=== PATIENT | female | born 1965 | race Caucasian/White ===

== ENCOUNTER → 2018-10-11 | Emergency (ER) | payer MEDICAID, OTHER ==
[~2018-10-11] VITALS: Ht 160 cm; Wt 53.9 kg
[~2018-10-11] MED LIST: LORAZEPAM 1 MG TAB PO ONE
[2018-10-11 00:13] VITALS: Ht 160 cm; Wt 53.9 kg
--- NOTE | 2018-10-11 02:44 | ERD ---
ER Documentation Chief Complaint Chief Complaint chest pain x 2 days HPI This is a 53-year-old female who presents to the emergency room complaining of chest pain for 3 days. The patient describes left-sided chest pain that is sharp, reproducible and usually worse with her anxiety. She states that today she became very anxious on the bus and presented to the emergency room. She denies any pleuritic pain, no shortness of breath, no exertional chest pain. No fevers chills cough. ROS All systems reviewed and are negative except as per history of present illness. Medications Home Meds Unable to Obtain Active Prescriptions or Reported Meds Allergies Allergies: Coded Allergies: Penicillins (Verified Allergy, Unknown, swelling, 10/11/18) PMhx/Soc History of Surgery: Yes (Breast implants, ) Anesthesia Reaction: No Hx Neurological Disorder: Yes (Seizures) Hx Respiratory Disorders: No Hx Cardiac Disorders: No Hx Psychiatric Problems: No Hx Miscellaneous Medical Probl: No Hx Alcohol Use: No Hx Substance Use: Yes (Quit 30 years ago) Hx Tobacco Use: Yes (Quit 2 years ago) Smoking Status: Former smoker FmHx Family History: No diabetes Physical Exam Vitals Vital Signs Date Temp Pulse Resp B/P (MAP) Pulse Ox O2 O2 Flow FiO2 Time Delivery Rate 10/11/18 97.8 70 18 124/55 97 Room Air 00:35 (78) 10/11/18 97.8 79 18 124/55 94 00:13 (78) Physical Exam General: Well developed, well nourished, no acute distress Head: Normocephalic, atraumatic. Eyes: Pupils equally reactive, EOM intact ENT: Moist mucous membranes Neck: Supple, no lymphadenopathy Respiratory: Lungs clear bilaterally, no distress Cardiovascular: RRR, no murmurs, rubs, or gallops Abdominal: Soft, non-tender, non-distended, no peritoneal signs : Deferred MSK: No edema, no unilateral swelling, 5/5 strength Neurologic: Alert and oriented, moving all extremities, normal speech, no focal weakness, no cerebellar signs Skin: No rash Psych: Normal mood Result Diagram: 10/11/188 10/11/188 Results 24 hrs Laboratory Tests Test 10/11/18 00:48 White Blood Count 5.4 10^3/ul Red Blood Count 4.02 10^6/ul Hemoglobin 12.5 g/dl Hematocrit 38.1 % Mean Corpuscular Volume 94.8 fl Mean Corpuscular Hemoglobin 31.1 pg Mean Corpuscular Hemoglobin Concent 32.8 g/dl Red Cell Distribution Width 12.3 % Platelet Count 198 10^3/UL Mean Platelet Volume 10.7 fl Immature Granulocytes % 0.200 % Neutrophils % 47.4 % Lymphocytes % 40.9 % Monocytes % 7.6 % Eosinophils % 3.2 % Basophils % 0.7 % Nucleated Red Blood Cells % 0.0 /100WBC Immature Granulocytes # 0.010 10^3/ul Neutrophils # 2.5 10^3/ul Lymphocytes # 2.2 10^3/ul Monocytes # 0.4 10^3/ul Eosinophils # 0.2 10^3/ul Basophils # 0.0 10^3/ul Nucleated Red Blood Cells # 0.0 10^3/ul Sodium Level 143 mmol/L Potassium Level 3.5 mmol/L Chloride Level 108 mmol/L Carbon Dioxide Level 23 mmol/L Anion Gap 12 Blood Urea Nitrogen 19 mg/dl Creatinine 0.66 mg/dl Est Glomerular Filtrat Rate mL/min > 60 mL/min Glucose Level 116 mg/dl Calcium Level 8.9 mg/dl Troponin I < 0.012 ng/ml Current Medications Medications Dose Sig/Evan Start Time Status Last (Trade) Ordered Route PRN Stop Time Admin Dose Reason Admin Lorazepam 1 mg ONCE ONCE 10/11/18 DC 10/11/18 (Ativan) PO 01:00 10/11/18 01:29 01:01 Procedures/MDM EKG, MONITORS, & DIAGNOSTIC IMAGING: EKG: I reviewed and interpreted a 12-lead EKG. Rhythm: Normal sinus rhythm ST Changes: No contiguous ST segment elevations T waves: No contiguous T wave inversions Impression: No evidence of acute cardiac ischemia Repeat EKG: EKG: I reviewed and interpreted a 12-lead EKG. Rhythm: Normal sinus rhythm ST Changes: No contiguous ST segment elevations T waves: No contiguous T wave inversions Impression: No evidence of acute cardiac ischemia Chest x-ray: I reviewed and interpreted a 1 view of the chest Mediastinum: No enlargement Cardiac silhouette: No cardiomegaly Airspace: Clear lung mccormack bilaterally without evidence of pneumothorax Bones: No evidence of fracture PROCEDURES: None LAB INTERPRETATION: Negative troponin MEDICAL DECISION MAKING: The patient's history, physical exam and clinical presentation is very consistent with anxiety rather than cardiac etiology. No exertional symptoms, better alternative diagnosis, clear correlation with anxiety and stress response. Based on the patient's clinical exam and history and risk factors, I have a much lower clinical concern for pulmonary embolism, acute aortic dissection, pneumothorax, pneumonia, cardiac tamponade HEART Score: Less than 3 MACE Rate: Less than 1.7% Shared Decision Making: We had a conversation regarding risk stratification, MACE rate, and the risks, benefits, alternatives of disposition planning options. Disposition planning: Anticipate discharge ER COURSE: * Patient continues to be well-appearing, given anxiolysis. * Laboratory testing and diagnostic imaging is unrevealing. This seems to be very inconsistent with cardiac etiology. Patient can be safely discharged with close primary care follow-up. CONSULTATION: None DISPOSITION PLAN: The patient does not have an identifiable emergent medical condition that warrants inpatient hospitalization at this time. The patient is deemed safe for discharge with outpatient follow-up. We discussed follow up with the patient's primary care doctor within 24 to 48 hours as needed. We also discussed return to the emergency room for worsening symptoms or worsening condition. Outpatient referral: None required Discharge Medications: None required Departure Diagnosis: Primary Impression: Chest pain Chest pain type: unspecified Qualified Codes: R07.9 - Chest pain, unspecified Additional Impression: Anxiety Condition: Stable Patient Instructions: Anxiety Reaction, Chest Pain, Uncertain Cause Referrals: [facility] YOU HAVE RECEIVED A MEDICAL SCREENING EXAM AND THE RESULTS INDICATE THAT YOU DO NOT HAVE A CONDITION THAT REQUIRES URGENT TREATMENT IN THE EMERGENCY DEPARTMENT. FURTHER EVALUATION AND TREATMENT OF YOUR CONDITION CAN WAIT UNTIL YOU ARE SEEN IN YOUR DOCTORS OFFICE WITHIN THE NEXT 1-2 DAYS. IT IS YOUR RESPONSIBILITY TO MAKE AN APPOINTMENT FOR FOL- CARE. IF YOU HAVE A PRIMARY DOCTOR --you should call your primary doctor and schedule an appointment IF YOU DO NOT HAVE A PRIMARY DOCTOR YOU CAN CALL OUR PHYSICIAN REFERRAL HOTLINE AT IF YOU CAN NOT AFFORD TO SEE A PHYSICIAN YOU CAN CHOSE FROM THE FOLLOWING [facility] [address] [facility] [address] [facility] [address] [facility] [address] [facility] [address] [facility] [facility] [address] [facility]. [facility] YOU HAVE RECEIVED A MEDICAL SCREENING EXAM AND THE RESULTS INDICATE THAT YOU DO NOT HAVE A CONDITION THAT REQUIRES URGENT TREATMENT IN THE EMERGENCY DEPARTMENT. FURTHER EVALUATION AND TREATMENT OF YOUR CONDITION CAN WAIT UNTIL YOU ARE SEEN IN YOUR DOCTORS OFFICE WITHIN THE NEXT 1-2 DAYS. IT IS YOUR RESPONSIBILITY TO MAKE AN APPOINTMENT FOR FOLOW-UP CARE. IF YOU HAVE A PRIMARY DOCTOR --you should call your primary doctor and schedule and appointment IF YOU DO NOT HAVE A PRIMARY DOCTOR YOU CAN CALL OUR PHYSICIAN REFERRAL HOTLINE AT . IF YOU CAN NOT AFFORD TO SEE A PHYSICIAN YOU CAN CHOSE FROM THE FOLLOWING [facility] INSTITUTIONS: [facility] [address] [place] [address] [facility] [address] [place] [address] [facility] + [facility] [address] [place] [address] Additional Instructions: Call your primary care doctor TOMORROW for an appointment during the next 2-3 days.See the doctor sooner or return here if your condition worsens before your appointment time. NICOLETTE BURK MD Oct 11, 2018 02:43
[2018-10-11 03:01] VITALS: BP 107/72; PULSE 68; RESP 15
== END | disposition home or self-care (01) ==
LOC: E/R 00:08
DX: R07.9 Chest pain, unspecified (principal); F41.9 Anxiety disorder, unspecified; Z87.891 Personal history of nicotine dependence
CPT/HCPCS: 36415; 71045; 80048; 84484; 85025; 93005; Z7502; Z7610

== ENCOUNTER 2018-11-24 22:08 | Emergency (ER) | payer OTHER ==
[~2018-11-24] VITALS: Ht 162.6 cm; Wt 52.3 kg
[2018-11-24 22:09] VITALS: Ht 162.6 cm; Wt 52.3 kg
[2018-11-24] MEDS ORDERED: BELLADONNA/PHENOBARBITAL TAB PO STA (22:26)
[2018-11-24] MEDS ORDERED: ONDANSETRON 4 MG INJ IV STA (22:26)
[2018-11-24] MEDS ORDERED: KETOROLAC 15 MG INJ IV STA (22:26)
[2018-11-24] MEDS ORDERED: LIDOCAINE/MYLANTA 40 ML BTL PO STA (22:26)
[2018-11-24] MEDS ORDERED: SOD CHLORIDE 0.9% 500 ML IV STA (22:26)
--- NOTE | 2018-11-24 22:29 | ERD ---
ER Documentation Chief Complaint Chief Complaint SOB started yesterday, worsening today, stopped smoking x2 yrs now. HPI 53-year-old woman with a history of methamphetamine abuse presents with chest pain or shortness of breath x2 days, she has had these symptoms in the past multiple times. She states the pain is sharp constant, nonradiating and nonexertional. Patient denies cough, no calf or leg swelling, no fevers or chills, no vomiting or diarrhea ROS All systems reviewed and are negative except as per history of present illness. Medications Home Meds Active Scripts Ibuprofen* (Motrin*) 600 Mg Tab, 600 MG PO Q8 PRN for PAIN AND/OR INFLAMMATION, #30 TAB Prov:NURYS ALVES MD 11/24/18 Allergies Allergies: Coded Allergies: Penicillins (Verified Allergy, Unknown, swelling, 11/24/18) PMhx/Soc Recent history of methamphetamine use, states she had a PR about 20 years ago History of Surgery: Yes (Breast implants, ) Anesthesia Reaction: No Hx Neurological Disorder: Yes (Seizures) Hx Respiratory Disorders: No Hx Cardiac Disorders: No Hx Psychiatric Problems: No Hx Miscellaneous Medical Probl: No Hx Alcohol Use: No Hx Substance Use: Yes (Quit 30 years ago) Hx Tobacco Use: Yes (Quit 2 years ago) FmHx Family History: No diabetes Physical Exam Vitals Vital Signs Date Temp Pulse Resp B/P (MAP) Pulse Ox O2 O2 Flow FiO2 Time Delivery Rate 11/24/18 54 16 120/75 99 Room Air 23:46 (90) 11/24/18 96.6 63 18 109/59 98 22:09 (76) Physical Exam GENERAL: Well-developed, well-nourished, well-hydrated, appears anxious, afebrile CARDIAC: Regular rate and rhythm, no murmurs rubs or gallops LUNGS: Clear bilaterally no wheezing crackles or stridor ABDOMEN: Soft nontender, no guarding, no rigidity, no rebound, no psoas sign no obturator sign. Normoactive bowel sounds SKIN: Warm and dry to touch, no abrasions, contusions, or hematomas, no lacerations, no ecchymosis, no target lesions, and without ulcers EXTREMITIES: No clubbing cyanosis or edema, calves are bilaterally symmetrical, no Homans sign, no popliteal cord sign. Distal pulses equal and bilateral PSYCH: Anxious Result Diagram: 11/24/18225211/24/182252 Results 24 hrs Laboratory Tests Test 11/24/18 22:53 White Blood Count 5.0 10^3/ul Red Blood Count 4.04 10^6/ul Hemoglobin 12.8 g/dl Hematocrit 39.7 % Mean Corpuscular Volume 98.3 fl Mean Corpuscular Hemoglobin 31.7 pg Mean Corpuscular Hemoglobin Concent 32.2 g/dl Red Cell Distribution Width 12.5 % Platelet Count 234 10^3/UL Mean Platelet Volume 10.9 fl Immature Granulocytes % 0.200 % Neutrophils % 34.8 % Lymphocytes % 47.6 % Monocytes % 11.4 % Eosinophils % 5.4 % Basophils % 0.6 % Nucleated Red Blood Cells % 0.0 /100WBC Immature Granulocytes # 0.010 10^3/ul Neutrophils # 1.7 10^3/ul Lymphocytes # 2.4 10^3/ul Monocytes # 0.6 10^3/ul Eosinophils # 0.3 10^3/ul Basophils # 0.0 10^3/ul Nucleated Red Blood Cells # 0.0 10^3/ul Sodium Level 139 mmol/L Potassium Level 3.5 mmol/L Chloride Level 104 mmol/L Carbon Dioxide Level 26 mmol/L Anion Gap 9 Blood Urea Nitrogen 21 mg/dl Creatinine 0.66 mg/dl Est Glomerular Filtrat Rate mL/min > 60 mL/min Glucose Level 101 mg/dl Calcium Level 9.3 mg/dl Total Bilirubin 0.4 mg/dl Direct Bilirubin 0.00 mg/dl Indirect Bilirubin 0.4 mg/dl Aspartate Amino Transf (AST/SGOT) 31 IU/L Alanine Aminotransferase (ALT/SGPT) 35 IU/L Alkaline Phosphatase 80 IU/L Troponin I < 0.012 ng/ml Total Protein 7.3 g/dl Albumin 4.3 g/dl Globulin 3.00 g/dl Albumin/Globulin Ratio 1.43 Lipase 184 U/L Current Medications Medications Dose Sig/Evan Start Time Status Last (Trade) Ordered Route PRN Stop Time Admin Dose Reason Admin Sodium 500 ml @ Q1H STAT 11/24/18 DC 11/24/18 Chloride 500 mls/hr IV 22:26 23:12 11/24/18 23:25 Ondansetron 4 mg ONCE STAT 11/24/18 DC 11/24/18 HCl (Zofran IV 22:26 23:08 Inj) 11/24/18 22:34 40 ml ONCE STAT 11/24/18 DC 11/24/18 Miscellaneous PO 22:26 23:04 Medication 11/24/18 22:34 (Gi Cocktail (2)) Belladonna/ 2 tab ONCE STAT 11/24/18 DC 11/24/18 Phenobarbital PO 22:26 23:04 () 11/24/18 22:34 Ketorolac 15 mg ONCE STAT 11/24/18 DC 11/24/18 Tromethamine IV 22:26 23:09 (Toradol) 11/24/18 22:34 Lorazepam 0.5 mg ONCE ONCE 11/24/18 DC 11/24/18 (Ativan) PO 22:30 23:04 11/24/18 22:34 Procedures/MDM IV line was established patient was placed on color television console monitor rhythm strip revealed a sinus rhythm at about 80 bpm with upright P and T waves. Patient was afebrile EKG performed, read by me reveals a normal sinus rhythm at 61 bpm, normal axis, narrow QRS complex, no concerning ST elevations or depressions noted One AP view of the chest performed, read by me reveals no acute infiltrates, normal mediastinum, sharp costophrenic and cardiac borders, no air under the diaphragm. Breast implants in place I administered 1 L normal saline IV, Toradol 15 mg IV, Zofran 4 mg IV, GI cock tail p.o., lorazepam 0.5 mg p.o. The patient's history, physical exam and clinical presentation is very consistent with anxiety rather than cardiac etiology. No exertional symptoms, better alternative diagnosis, clear correlation with anxiety and stress response. Based on the patient's clinical exam and history and risk factors, I have a much lower clinical concern for pulmonary embolism, acute aortic dissection, pneumothorax, pneumonia, cardiac tamponade HEART Score: Less than 3 MACE Rate: Less than 1.7% Shared Decision Making: We had a conversation regarding risk stratification, MACE rate, and the risks, benefits, alternatives of disposition planning options. Disposition planning: Discharge ER COURSE: * Patient continues to be well-appearing, given anxiolysis. * Laboratory testing and diagnostic imaging is unrevealing. This seems to be very inconsistent with cardiac etiology. Patient can be safely discharged with close primary care follow-up. * CBC and electrolytes were normal, liver function tests are normal, troponin was negative differential diagnoses considered, included but not limited to acute coronary syndrome, pulmonary embolism, aortic dissection, abdominal aortic aneurysm, sepsis, stroke, meningitis, encephalitis, pneumonia, appendicitis, cholecystitis, bowel obstruction, pyelonephritis, nephrolithiasis, cystitis, as well as metabolic, hematologic, and electrolyte abnormalities. As well as abscess, cellulitis, fractures, and dislocations. Patient feels much better at this time, and vital signs are normal, symptoms have improved. I did give strict instructions to return to the ED if symptoms continue or worsen, patient will otherwise follow-up with primary care physician. Patient understood instructions and agreed to plan. Disclaimer: Inadvertent spelling and grammatical errors are likely due to EHR/dictation software use and do not reflect on the overall quality of patient care. Also, please note that the electronic time recorded on this note does not necessarily reflect the actual time of the patient encounter. Departure Diagnosis: Primary Impression: Anxiety Additional Impression: Chest pain Chest pain type: unspecified Qualified Codes: R07.9 - Chest pain, unspecified Condition: NURYS Robertson MD Nov 24, 2018 22:29
[2018-11-24] MEDS ORDERED: LORAZEPAM 0.5 MG TAB PO ONE (22:30)
[2018-11-24] MEDS ORDERED: IBUP-1542 PO (23:42)
[2018-11-24 23:46] VITALS: BP 120/75; PULSE 54; RESP 16
== END 2018-11-24 23:51 | disposition home or self-care (01) ==
LOC: E/R 22:08
DX: F41.9 Anxiety disorder, unspecified (principal); I25.2 Old myocardial infarction; R07.9 Chest pain, unspecified; Z87.891 Personal history of nicotine dependence
CPT/HCPCS: 36415; 71045; 80053; 83690; 84484; 85025; 93005; 96374; 96375; J1885; J2405; J7040; Z7502; Z7610

== ENCOUNTER 2019-03-09 21:20 | Emergency (ER) | payer OTHER ==
[~2019-03-09] VITALS: Ht 160 cm; Wt 51.6 kg
[~2019-03-09 21:20] MED LIST changes: +CEPH-443 PO; +CYCL10TA7 PO; +ESOM20CA PO; +ESOM40CA PO; +FAMO-96 PO; +IBUP800T48 PO; -LORAZEPAM 1 MG TAB PO ONE; +MAG-19 PO; +MUPI22OI2 TOP; +ORA20G7 BUCCAL; +SULF1TAB31 PO
[2019-03-09 21:23] VITALS: Ht 160 cm; Wt 51.6 kg
[2019-03-09] MEDS ORDERED: FAMOTIDINE 20 MG TAB PO STA (22:54)
[2019-03-09] MEDS ORDERED: LIDOCAINE 2% VISC 10 ML CUP PO ONE (23:00)
[2019-03-09] MEDS ORDERED: AL HYDROX/MG HYDROX/SIMETH 30 ML CUP PO ONE (23:00)
[2019-03-10 01:19] VITALS: BP 128/72; PULSE 78; RESP 16
== END 2019-03-10 01:28 | disposition home or self-care (01) ==
LOC: E/R 21:20
DX: R10.13 Epigastric pain (principal); R40.2142 Coma scale, eyes open, spontaneous, at arrival to emergency department; R40.2252 Coma scale, best verbal response, oriented, at arrival to emergency department; R40.2362 Coma scale, best motor response, obeys commands, at arrival to emergency department; Z87.891 Personal history of nicotine dependence
CPT/HCPCS: 80053; 83690; 85025; Z7502; Z7610; 99283

== ENCOUNTER 2019-03-13 00:12 | Emergency (ER) | payer OTHER ==
[~2019-03-13] VITALS: Ht 162.6 cm; Wt 50.8 kg
[2019-03-13 00:17] VITALS: Ht 162.6 cm; Wt 50.8 kg
[2019-03-13] MEDS ORDERED: KETOROLAC 15 MG INJ IV STA (04:05)
[2019-03-13 06:24] VITALS: BP 130/89; PULSE 75; RESP 16
== END 2019-03-13 06:25 | disposition home or self-care (01) ==
LOC: E/R 00:12
DX: M54.41 Lumbago with sciatica, right side (principal); R40.2142 Coma scale, eyes open, spontaneous, at arrival to emergency department; R40.2362 Coma scale, best motor response, obeys commands, at arrival to emergency department; R40.2252 Coma scale, best verbal response, oriented, at arrival to emergency department; N30.00 Acute cystitis without hematuria; K08.89 Other specified disorders of teeth and supporting structures; Z87.891 Personal history of nicotine dependence
CPT/HCPCS: 36415; 80053; 81001; 83690; 85025; 96374; J1885; Z7502